=== PATIENT | female | born 1955 | race Caucasian/White ===

== ENCOUNTER 2020-03-21 10:52 | Outpatient (REF) | payer MEDICARE, SELFPAY | END 2020-03-21 10:53 | disposition home or self-care (01) | LOC: HO.BBR 10:52 | PROVIDERS: Visit Provider Internal Medicine Gastroenterology | DX: Z13.89 Encounter for screening for other disorder (principal) ==

== ENCOUNTER 2020-03-28 09:55 | Outpatient (REF) | payer MEDICARE, SELFPAY | END 2020-03-28 09:56 | disposition home or self-care (01) | LOC: HO.BBR 09:55 | PROVIDERS: Visit Provider Internal Medicine Gastroenterology | DX: Z13.89 Encounter for screening for other disorder (principal) ==

== ENCOUNTER 2020-06-20 10:54 | Outpatient (REF) | payer MEDICARE, SELFPAY | END 2020-06-20 10:55 | disposition home or self-care (01) | LOC: HO.BBR 10:54 | PROVIDERS: Visit Provider Internal Medicine Gastroenterology | DX: Z13.89 Encounter for screening for other disorder (principal) ==

== ENCOUNTER 2020-09-26 11:04 | Outpatient (REF) | payer MEDICARE, SELFPAY | END 2020-09-26 11:05 | disposition home or self-care (01) | LOC: HO.BBR 11:04 | PROVIDERS: Visit Provider Internal Medicine Gastroenterology | DX: Z13.89 Encounter for screening for other disorder (principal) ==

== ENCOUNTER 2021-02-01 13:51 | Outpatient (REF) | payer MEDICARE, SELFPAY | END 2021-02-01 13:52 | disposition home or self-care (01) | LOC: HO.BBR 13:51 | PROVIDERS: Visit Provider Internal Medicine Gastroenterology | DX: Z13.89 Encounter for screening for other disorder (principal) ==

== ENCOUNTER 2021-02-10 10:31 | Outpatient (REF) | payer MEDICARE, SELFPAY | END 2021-02-10 10:32 | disposition home or self-care (01) | LOC: HO.BBR 10:31 | PROVIDERS: Visit Provider Internal Medicine Gastroenterology | DX: Z13.89 Encounter for screening for other disorder (principal) ==

== ENCOUNTER 2021-02-17 08:58 | Outpatient (REF) | payer MEDICARE, SELFPAY | END 2021-02-17 08:59 | disposition home or self-care (01) | LOC: HO.BBR 08:58 | PROVIDERS: Visit Provider Internal Medicine Gastroenterology | DX: Z13.89 Encounter for screening for other disorder (principal) ==

== ENCOUNTER 2021-06-08 08:51 | Outpatient (REF) | payer MEDICARE, SELFPAY | END 2021-06-08 08:52 | disposition home or self-care (01) | LOC: HO.BBR 08:51 | PROVIDERS: Visit Provider Internal Medicine Gastroenterology | DX: Z13.89 Encounter for screening for other disorder (principal) ==

== ENCOUNTER 2021-06-15 14:51 | Outpatient (REF) | payer MEDICARE, SELFPAY | END 2021-06-15 14:52 | disposition home or self-care (01) | LOC: HO.BBR 14:51 | PROVIDERS: Visit Provider Internal Medicine Gastroenterology | DX: Z13.89 Encounter for screening for other disorder (principal) ==

== ENCOUNTER 2021-06-23 10:05 | Outpatient (REF) | payer MEDICARE, SELFPAY | END 2021-06-23 10:06 | disposition home or self-care (01) | LOC: HO.BBR 10:05 | PROVIDERS: Visit Provider Internal Medicine Gastroenterology | DX: Z13.89 Encounter for screening for other disorder (principal) ==

== ENCOUNTER 2021-09-28 08:56 | Outpatient (REF) | payer MEDICARE, SELFPAY | END 2021-09-28 08:57 | disposition home or self-care (01) | LOC: HO.BBR 08:56 | PROVIDERS: Visit Provider Internal Medicine Gastroenterology | DX: Z13.89 Encounter for screening for other disorder (principal) ==

== ENCOUNTER 2021-10-05 10:02 | Outpatient (REF) | payer MEDICARE, SELFPAY | END 2021-10-05 10:03 | disposition home or self-care (01) | LOC: HO.BBR 10:02 | PROVIDERS: Visit Provider Internal Medicine Gastroenterology | DX: Z13.89 Encounter for screening for other disorder (principal) ==

== ENCOUNTER 2022-01-25 14:09 | Outpatient (REF) | payer MEDICARE, SELFPAY | END 2022-01-25 14:10 | disposition home or self-care (01) | LOC: HO.BBR 14:09 | PROVIDERS: Visit Provider Internal Medicine Gastroenterology | DX: Z13.89 Encounter for screening for other disorder (principal) ==

== ENCOUNTER 2022-02-01 10:52 | Outpatient (REF) | payer MEDICARE, SELFPAY | END 2022-02-01 10:53 | disposition home or self-care (01) | LOC: HO.BBR 10:52 | PROVIDERS: Visit Provider Internal Medicine Gastroenterology | DX: Z13.89 Encounter for screening for other disorder (principal) ==